=== PATIENT | female | born 1990 | race Two or more races ===

== ENCOUNTER 2021-04-20 09:31 | Emergency (ER) | payer BC ==
[~2021-04-20] VITALS: Ht 167.6 cm; Wt 81.6 kg
[2021-04-20] MEDS ORDERED: ACETAMINOPHEN ES 500 MG TABLET ONE (10:03)
[2021-04-20] MEDS ORDERED: CYCLOBENZAPRINE 10 MG TABLET ONE (10:03)
[2021-04-20] MEDS: ACETAMINOPHEN ES 500 MG TABLET PO ONE (10:10)
[2021-04-20] MEDS: CYCLOBENZAPRINE 10 MG TABLET PO ONE (10:10)
[2021-04-20] MEDS ORDERED: CYCL5TAB PO (10:49)
[2021-04-20] MEDS ORDERED: IBUP-1957 PO (10:49)
[2021-04-20 11:37] VITALS: BP 132/75
== END 2021-04-20 11:38 | disposition home or self-care (01) ==
LOC: ER 09:34
DX: M25.512 Pain in left shoulder (principal); M54.2 Cervicalgia; Z79.1 Long term (current) use of non-steroidal anti-inflammatories (NSAID); Z79.899 Other long term (current) drug therapy; Z60.2 Problems related to living alone; V99.XXXA Unspecified transport accident, initial encounter; Y93.89 Activity, other specified; Y92.89 Other specified places as the place of occurrence of the external cause; Y99.8 Other external cause status
CPT/HCPCS: 71045-TC; 72125-TC; 73030-TC